=== PATIENT | female | born 1985 | race Caucasian/White ===

== ENCOUNTER 2016-10-06 22:35 | Emergency (ER) | payer OTHER ==
[~2016-10-06] VITALS: Ht 167.6 cm; Wt 140.9 kg
[~2016-10-06 22:35] MED LIST: DIAZ5TAB3 PO; LOV120 SUBQ; MELO-253 PO; NORG1TAB79 PO; OXYC1TAB24 PO; TOPI50TA88 PO; WARF5TAB PO
[2016-10-06 22:46] VITALS: BP 152/88; PULSE 70; RESP 18; O2SAT 99
--- NOTE | 2016-10-06 22:50 | ED.REPORT ---
HPI-General Illness Date of Service Oct 06, 2016 ED Provider: Nursing Notes Stated Complaint: ALLERGIC REACTION/THROAT SWELLING Chief Complaint: Allergic Reaction Allergies: Coded Allergies: hydrocodone (Verified Allergy, Severe, Hives, 10/06/16) Scheduled Enoxaparin (Lovenox) 120 Mg/0.8 Ml Inj 120 MG SUBQ Q12 Meloxicam (Meloxicam) 15 Mg Tablet 15 MG PO DAILY Norgestimate-Ethinyl Estradiol (Tri-Linyah) 1 Each Tablet 1 EACH PO HS Topiramate (Topiramate) 50 Mg Tablet 50 MG PO HS Warfarin Sodium (Coumadin) 5 Mg Tablet 5 MG PO DAILY@17 Scheduled PRN Diazepam (Diazepam) 5 Mg Tablet 5 MG PO QID PRN PRN For Spasm oxyCODONE-Acetaminophen 5-325 mg (oxyCODONE-Acetaminophen 5-325 mg) 1 Each Tablet 1-2 EACH PO Q4-6H PRN PRN For Pain General Time Seen by MD: 22:50 Past Medical History Past Medical History Chronic back pain Anxiety Past Surgical History Laminectomy on 06/14/2015 Smoking History Never Smoker Social History Denies alcohol use and denies smoking. No illicit drug use Physical Exam Vital Signs Vital Signs Date Time Temp Pulse Resp B/P Pulse Ox O2 Delivery O2 Flow Rate FiO2 10/06/16 22:46 36.1 70 18 152/88 99 Room Air Discharge & Departure Referrals: Keiko Sanchez MD (PCP) Adán Uriostegui MD Oct 06, 2016 22:50
--- NOTE | 2016-10-06 22:50 | ED.REPORT ---
HPI-Allergic Reaction Date of Service Oct 06, 2016 ED Provider: Dr. Bulmaro Leiva 31 year old female with a history of anxiety and chronic back pain with no known allergies who presents to the ED with concern for an allergic reaction. The patient was preparing BBQ pork for dinner when she noticed tingling, swelling and numbness to the upper lip, tongue and throat. Pt denies any SOB. She has not taken any medications for this. Pt is a non-smoker and denies current . Nursing Notes Stated Complaint: ALLERGIC REACTION/THROAT SWELLING Chief Complaint: Allergic Reaction Nursing Notes Reviewed: Yes Allergies: Coded Allergies: hydrocodone (Verified Allergy, Severe, Hives, 10/06/16) Scheduled Enoxaparin (Lovenox) 120 Mg/0.8 Ml Inj 120 MG SUBQ Q12 Meloxicam (Meloxicam) 15 Mg Tablet 15 MG PO DAILY Norgestimate-Ethinyl Estradiol (Tri-Linyah) 1 Each Tablet 1 EACH PO HS Topiramate (Topiramate) 50 Mg Tablet 50 MG PO HS Warfarin Sodium (Coumadin) 5 Mg Tablet 5 MG PO DAILY@17 Scheduled PRN Diazepam (Diazepam) 5 Mg Tablet 5 MG PO QID PRN PRN For Spasm oxyCODONE-Acetaminophen 5-325 mg (oxyCODONE-Acetaminophen 5-325 mg) 1 Each Tablet 1-2 EACH PO Q4-6H PRN PRN For Pain General Time Seen by MD: 22:50 Chief Complaint Swelling face, Swelling throat Hx Obtained From: Patient Arrived By: Walk-in Onset Occurred: 1 - 4 hours ago Symptom Duration: Since onset Progression Since Onset: Constant Severity: Current: No pain currently Associated with: Reports: Lips swollen, Throat swollen, Tongue swollen Similar Sx Previous: No Past Medical History Past Medical History Chronic back pain Anxiety 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 No illicit drug use Alcohol Use: Denies alcohol use Drug Use: Denies drug use Review of Systems Constitutional: Denies: Fever Ears / Nose / Throat: Reports: Throat swelling, Tongue swelling Respiratory: Denies: Shortness of breath GI: Denies: Vomiting Allergy / Immune: Reports: Allergic reaction Neurologic: Denies: Change LOC, Headache Complete sys rev & neg: except as marked. Physical Exam Initial Vital Signs Vital Signs (First) Date Time Temp Pulse Resp B/P Pulse Ox O2 Delivery O2 Flow Rate FiO2 10/06/16 22:46 36.1 70 18 152/88 99 Room Air Initial VS: Reviewed Head / Eyes: Atraumatic, Normocephalic, PERRL ENT: Mucous membranes moist, Conjunctiva normal, No scleral icterus Neck: Supple, Non-tender, Full range of motion Abdomen / GI: Soft, Non-tender, No guarding, No rebound, No distention Extremities: Vascular intact, Neuro intact, No swelling, No tenderness Neurologic: Alert, Oriented, Nonfocal Psychiatric: Mood/affect normal, Behavior normal, Normal thought content General/Constitutional: Awake, Alert, Cooperative Respiratory / Chest: Breath sounds NL, Breath sounds = bilat, No respiratory distress, No rales, No rhonchi, No wheezing, No retractions, No stridor Cardiovascular: Heart rate NL, Regular rhythm, Heart sounds NL, No murmurs, Peripheral circulation NL Skin: No rash, Warm, Dry ENT: Airway patent, Mucous membranes moist, Pharynx NL, No facial swelling Uvula midline Interpretation & Diagnostics Pulse Oximetry Interpretation Pulse Oximetry: Pulse Ox normal (99), On room air Re-Eval/Medical Decision Re-Evaluation/Progress : Time of Eval: 00:50 Re-Evaluation/Progress Note: Pt resting comfortably. Pt has no signs of allergic reaction after 2.5 hours of observation. No swelling and clear lungs. Discussed plan for discharge and follow up. All questions addressed. Counseled Regarding: Diagnosis, Need for follow-up, When/why to return to ED Discharge & Departure Primary Impression: Allergic reaction Encounter type: initial encounter Qualified Code: T78.40XA - Allergy, unspecified, initial encounter Disposition: Home Discharge Condition All VS Reviewed: Yes Condition: Stable Patient Instructions: Anaphylaxis (DC) Additional Instructions: Finish the Medrol dose pack. Use Benadryl and Epi-pen as directed if needed. Call your PCP on Saturday to schedule a follow up appointment next week. They can refer you to an research and development manager. Return to the ER for any new or concerning symptoms. Referrals: Keiko Sanchez MD (PCP) Scribe Attestation Portions of this note were transcribed by Cathleen Ward. I, (Dr. Leiva) personally performed the history, physical exam and medical decision-making; I reviewed and confirmed the accuracy of the information in the transcribed note. Signed by: Cathleen Ward. Candace, 10/07/16, 0104 copies to: Keiko Sanchez MD, Todd P DO Oct 06, 2016 22:50 Cathleen Ward Oct 06, 2016 22:56
[2016-10-06] MEDS ORDERED: Dexamethasone Inj 20 MG in 0.9% Sodium Chloride-Pha MIX 50 ML IV ONE (22:55)
[2016-10-06] MEDS ORDERED: Famotidine Inj 20 MG in IV Premix 1 EACH IV ONE (22:55)
[2016-10-07 01:14] VITALS: BP 118/57; PULSE 64; RESP 16; O2SAT 96
== END 2016-10-07 01:15 | disposition home or self-care (01) ==
LOC: SED 22:35
DX: T78.40XA Allergy, unspecified, initial encounter (principal); Z79.01 Long term (current) use of anticoagulants; Z88.5 Allergy status to narcotic agent
CPT/HCPCS: 96374; 96375; 99284; J1100; J1200; J3490